=== PATIENT | female | born 1980 | race Caucasian/White ===

== ENCOUNTER 2018-10-10 07:52 | Emergency (ER) | payer BC, SELFPAY ==
[2018-10-10 07:55] VITALS: BP 140/84; PULSE 80; RESP 12; TEMP 36.8; O2SAT 97
--- NOTE | 2018-10-10 07:56 | W.ED.GENAD ---
Discharge Plan Disposition Patient Disposition: HOME Condition: Fair Discharge Details Chief Complaint: Sorethroat Clinical Impression: Strep pharyngitis Primary Care Provider: Paulina Aranda ED Provider: Adilene Patterson Home Meds and New Rx's Prescriptions: New amoxicillin 500 mg capsule 500 mg PO BID Qty: 20 RF: 0 lidocaine HCl [Lidocaine Viscous] 2 % solution 15 ml MM BID-QID PRN (Reason: mouth pain) Qty: 100 RF: 0 Discharge Instructions Instructions: Upper Respiratory Infection (ED) Additional Instructions: Encourage hydration. Tylenol and/or ibuprofen as needed for discomfort. Use the viscous lidocaine as prescribed to help with discomfort. Please take this only as prescribed. Take amoxicillin as prescribed, even if symptoms improve please take the entire course. If you develop increased swelling, shortness of breath, inability stay hydrated or other new/worsening symptoms please seek care urgently once again. Otherwise, symptoms are not resolved next week please follow-up with primary care Wash your hands frequently, change toothbrushes as discussed Stand Alone Forms: Work Release Referrals: Paulina Aranda [Primary Care Provider] - Medical Decision Making Patient is a 38-year-old female presents today with chief complaint of sore throat that began yesterday. Patient reports that she started feeling slightly unwell the night before the sore throat began maximizing yesterday. States that she is able to continue to hydrate but has discomfort doing so. Diminished appetite secondary to pain. Denies fevers or chills. Had one episode of nausea this morning which is since resolved. Patient reports her child has had strep on multiple occasions. On exam, she appears nontoxic. Vital signs within normal limits. Posterior oropharynx is concerning for bilateral tonsillar hypertrophy, erythema with exudate. No trismus, muffled voice or swelling of the tongue. Palpable lymphadenopathy. Primarily concern for Streptococcus pharyngitis. Rapid strep positive. Discussed this finding with the patient. Patient be treated with antibiotics. Encourage hydration. Given the swelling in her discomfort, will give 1 dose of oral dexamethasone. Will give viscous lidocaine to allow for better hydration. Patient did use ibuprofen earlier this morning, will augment this with Tylenol. She is given strict return precautions. Advised to follow-up with primary care if not improving in the next week. All the questions and concerns were addressed and she is in agreement with this plan. Will change her toothbrush, aware it is contagious and will take precautions. HPI General Mode of arrival: ambulatory. Date/Time Provider Initiated Documentation: 10/10/18 07:56. Limitations to Documentation: no limitations. Information obtained by: patient and RN notes reviewed. History of Present Illness 38 year old F presents to the emergency department with the chief complaint of sore throat, described as moderate, with intensity rated at 8. Quality is described as burning, and is localized to the mouth. Patient reports no radiation. Patient started experiencing this day(s) (1) and it has been constant. No relieving factors improve symptom(s), Eating worsens symptoms . Patient notes loss of appetite (secondary to throat pain) and nausea/vomiting (endorses 1 episode of nausea this AM, since resolved); denies chest pain, cough, diaphoresis, fever/chills, headaches, rash, shortness of breath, syncope and weakness. Patient did receive the following treatments prior to arrival, NSAID Related Data Home Medications Medication Instructions Recorded Confirmed amoxicillin 500 mg PO BID #20 cap 10/10/18 lidocaine HCl [Lidocaine Viscous] 15 ml MM BID-QID PRN #100 ml 10/10/18 Previous Rx's Medication Instructions Recorded amoxicillin 500 mg PO BID #20 cap 10/10/18 lidocaine HCl [Lidocaine Viscous] 15 ml MM BID-QID PRN #100 ml 10/10/18 Allergies Allergy/AdvReac Type Severity Reaction Status Date / Time No Known Drug Allergies Allergy Unverified 10/10/18 07:57 General Stated Complaint: Sorethroat STARLA: 4 Review of Systems Constitutional Reports as per HPI, Denies chills, Reports fatigue, Denies fever(s), Denies headache(s), Denies lethargy and Reports poor appetite Eyes Reports as per HPI, Denies eye discharge and Denies irritation ENT Reports as per HPI, Denies ear discharge, Reports otalgia (bilateral), Denies headache(s), Denies nasal congestion, Denies nasal discharge, Reports neck pain (endoses pain along lymphnodes), Reports sore throat and Denies tongue swelling Cardiovascular Reports as per HPI, Denies chest pain and Denies dyspnea Respiratory Reports as per HPI, Reports cough (mild,nonproductive cough), Denies hemoptysis, Denies dyspnea and Denies wheezing Gastrointestinal Reports as per HPI, Denies abdominal pain, Denies change in bowel habits, Denies nausea and Denies vomiting Musculoskeletal Reports neck pain (endoses pain along lymphnodes) Integumentary/Breasts Reports as per HPI and Denies rash Neurologic Reports as per HPI and Denies headache(s) Endocrine Reports fatigue Allergic/Immunologic Denies tongue swelling and Denies wheezing [facility] Social History Smoking/Tobacco Use Status: Former Tobacco Use Drug use: Never Do you feel safe at home: Yes Do you feel safe in your relationship?: Yes Exam Const General: cooperative, healthy appearing, comfortable, no acute distress, well developed and well groomed Nutritional Appearance: average body habitus and well nourished Orientation: alert and awake HENNJ Head: normal to inspection, normocephalic and atraumatic Ears: hearing grossly normal bilaterally, external ears normal and TM's normal bilaterally General nose exam: external nose normal and nares normal Face and sinus: normal facial exam, sinuses nontender and face symmetric Mouth: oral mucosae normal, lip normal, tongue normal, oropharynx normal, moist mucous membranes, no muffled voice, no trismus and No restricted motion Teeth and gingiva: dentition normal Throat: uvula midline and abnormal tonsil bilaterally erythema, exudates and hypertrophy 2+ Eyes General: appearance normal, both eyes and all related structures Neck Neck: normal visual inspection, full ROM, no meningeal signs and lymphadenopathy Resp Effort & Inspection: normal respiratory effort, able to speak in complete sentences and no respiratory distress Auscultation: clear to auscultation bilaterally, no rales, no rhonchi and no wheezes Cardio Rate: regular rate Rhythm: regular rhythm Heart Sounds: S1 normal and S2 normal Skin General skin exam: no rashes or lesions noted Neuro General: alert and awake Cognition: normal cognition Speech: speech normal Gait: normal gait Psych Appearance: grossly normal and well kempt Mental Status: mental status grossly normal Speech and Movement: speech and movement normal Course Vital Signs Temperature 36.8 C 10/10/18 07:55 Pulse 80 10/10/18 07:55 Respiratory Rate 12 10/10/18 07:55 Blood Pressure 140/84 10/10/18 07:55 Pulse Oximetry 97 10/10/18 07:55 Temperature 36.8 C 10/10/18 07:55 Temperature Source Temporal Artery Scan 10/10/18 07:55 Pulse 80 05/30/19 07:55 Respiratory Rate 12 10/10/18 07:55 Blood Pressure 140/84 10/10/18 07:55 Blood Pressure Position Sitting 10/10/18 07:55 Pulse Oximetry 97 10/10/18 07:55 Oxygen Delivery Method Room Air 10/10/18 07:55 Oxygen Flow Rate 0 10/10/18 07:55 Pain Level 8 10/10/18 07:55
[2018-10-10] MEDS: Lidocaine 2% Viscous 15 ML CUP PO (08:13)
[2018-10-10] MEDS: Dexamethasone 10 MG/ML VIAL PO (08:13)
[2018-10-10] MEDS: Acetaminophen 325 MG TAB 650 MG PO (08:13)
--- NOTE | 2018-10-10 08:16 | ED.GENADUL_ITS ---
Discharge Plan Disposition Patient Disposition: HOME Condition: Fair Discharge Details Chief Complaint: Sorethroat Clinical Impression: Strep pharyngitis Primary Care Provider: Paulina Aranda ED Provider: Adilene Patterson Home Meds and New Rx's Prescriptions: New amoxicillin 500 mg capsule 500 mg PO BID Qty: 20 RF: 0 lidocaine HCl [Lidocaine Viscous] 2 % solution 15 ml MM BID-QID PRN (Reason: mouth pain) Qty: 100 RF: 0 Discharge Instructions Instructions: Upper Respiratory Infection (ED) Additional Instructions: Encourage hydration. Tylenol and/or ibuprofen as needed for discomfort. Use the viscous lidocaine as prescribed to help with discomfort. Please take this only as prescribed. Take amoxicillin as prescribed, even if symptoms improve please take the entire course. If you develop increased swelling, shortness of breath, inability stay hydrated or other new/worsening symptoms please seek care urgently once again. Otherwise, symptoms are not resolved next week please follow-up with primary care Wash your hands frequently, change toothbrushes as discussed Stand Alone Forms: Work Release Referrals: Paulina Aranda [Primary Care Provider] - Medical Decision Making Patient is a 38-year-old female presents today with chief complaint of sore throat that began yesterday. Patient reports that she started feeling slightly unwell the night before the sore throat began maximizing yesterday. States that she is able to continue to hydrate but has discomfort doing so. Diminished appetite secondary to pain. Denies fevers or chills. Had one episode of nausea this morning which is since resolved. Patient reports her child has had strep on multiple occasions. On exam, she appears nontoxic. Vital signs within normal limits. Posterior oropharynx is concerning for bilateral tonsillar hypertrophy, erythema with exudate. No trismus, muffled voice or swelling of the tongue. Palpable lymphadenopathy. Primarily concern for Streptococcus pharyngitis. Rapid strep positive. Discussed this finding with the patient. Patient be treated with antibiotics. Encourage hydration. Given the swelling in her discomfort, will give 1 dose of oral dexamethasone. Will give viscous lidocaine to allow for better hydration. Patient did use ibuprofen earlier this morning, will augment this with Tylenol. She is given strict return precautions. Advised to follow-up with primary care if not improving in the next week. All the questions and concerns were addressed and she is in agreement with this plan. Will change her toothbrush, aware it is contagious and will take precautions. HPI General Mode of arrival: ambulatory . Date/Time Provider Initiated Documentation: 10/10/18 07:56 . Limitations to Documentation: no limitations . Information obtained by: patient and RN notes reviewed . History of Present Illness 38 year old F presents to the emergency department with the chief complaint of sore throat, described as moderate, with intensity rated at 8. Quality is described as burning, and is localized to the mouth. Patient reports no radiation. Patient started experiencing this day(s) (1) and it has been constant. No relieving factors improve symptom(s), Eating worsens symptoms . Patient notes loss of appetite (secondary to throat pain) and nausea/vomiting (endorses 1 episode of nausea this AM, since resolved); denies chest pain, cough, diaphoresis, fever/chills, headaches, rash, shortness of breath, syncope and weakness. Patient did receive the following treatments prior to arrival, NSAID Related Data Home Medications Medication Instructions Recorded Confirmed amoxicillin 500 mg PO BID #20 cap 10/10/18 lidocaine HCl [Lidocaine Viscous] 15 ml MM BID-QID PRN #100 ml 10/10/18 Previous Rx's Medication Instructions Recorded amoxicillin 500 mg PO BID #20 cap 10/10/18 lidocaine HCl [Lidocaine Viscous] 15 ml MM BID-QID PRN #100 ml 10/10/18 Allergies Allergy/AdvReac Type Severity Reaction Status Date / Time No Known Drug Allergies Allergy Unverified 10/10/18 07:57 General Stated Complaint: Sorethroat STARLA: 4 Review of Systems Constitutional Reports as per HPI, Denies chills, Reports fatigue, Denies fever(s), Denies headache(s), Denies lethargy and Reports poor appetite Eyes Reports as per HPI, Denies eye discharge and Denies irritation ENT Reports as per HPI, Denies ear discharge, Reports otalgia (bilateral), Denies headache(s), Denies nasal congestion, Denies nasal discharge, Reports neck pain (endoses pain along lymphnodes), Reports sore throat and Denies tongue swelling Cardiovascular Reports as per HPI, Denies chest pain and Denies dyspnea Respiratory Reports as per HPI, Reports cough (mild,nonproductive cough), Denies hemoptysis, Denies dyspnea and Denies wheezing Gastrointestinal Reports as per HPI, Denies abdominal pain, Denies change in bowel habits, Denies nausea and Denies vomiting Musculoskeletal Reports neck pain (endoses pain along lymphnodes) Integumentary/Breasts Reports as per HPI and Denies rash Neurologic Reports as per HPI and Denies headache(s) Endocrine Reports fatigue Allergic/Immunologic Denies tongue swelling and Denies wheezing [facility] Social History Smoking/Tobacco Use Status: Former Tobacco Use Drug use: Never Do you feel safe at home: Yes Do you feel safe in your relationship?: Yes Exam Const General: cooperative, healthy appearing, comfortable, no acute distress, well developed and well groomed Nutritional Appearance: average body habitus and well nourished Orientation: alert and awake HENWI Head: normal to inspection, normocephalic and atraumatic Ears: hearing grossly normal bilaterally, external ears normal and TM's normal bilaterally General nose exam: external nose normal and nares normal Face and sinus: normal facial exam, sinuses nontender and face symmetric Mouth: oral mucosae normal, lip normal, tongue normal, oropharynx normal, moist mucous membranes, no muffled voice, no trismus and No restricted motion Teeth and gingiva: dentition normal Throat: uvula midline and abnormal tonsil bilaterally erythema, exudates and hypertrophy 2+ Eyes General: appearance normal, both eyes and all related structures Neck Neck: normal visual inspection, full ROM, no meningeal signs and lymphadenopathy Resp Effort & Inspection: normal respiratory effort, able to speak in complete sentences and no respiratory distress Auscultation: clear to auscultation bilaterally, no rales, no rhonchi and no wheezes Cardio Rate: regular rate Rhythm: regular rhythm Heart Sounds: S1 normal and S2 normal Skin General skin exam: no rashes or lesions noted Neuro General: alert and awake Cognition: normal cognition Speech: speech normal Gait: normal gait Psych Appearance: grossly normal and well kempt Mental Status: mental status grossly normal Speech and Movement: speech and movement normal Course Vital Signs Temperature 36.8 C 10/10/18 07:55 Pulse 80 10/10/18 07:55 Respiratory Rate 12 10/10/18 07:55 Blood Pressure 140/84 10/10/18 07:55 Pulse Oximetry 97 10/10/18 07:55 Temperature 36.8 C 10/10/18 07:55 Temperature Source Temporal Artery Scan 10/10/18 07:55 Pulse 80 05/30/19 07:55 Respiratory Rate 12 10/10/18 07:55 Blood Pressure 140/84 10/10/18 07:55 Blood Pressure Position Sitting 10/10/18 07:55 Pulse Oximetry 97 10/10/18 07:55 Oxygen Delivery Method Room Air 10/10/18 07:55 Oxygen Flow Rate 0 10/10/18 07:55 Pain Level 8 10/10/18 07:55
== END 2018-10-10 08:22 | disposition home or self-care (01) ==
PROVIDERS: Emergency Provider Physician Assistant; PCP Family Medicine
DX: J02.0 Streptococcal pharyngitis (principal)
CPT/HCPCS: 87880; 99283; J1100

== ENCOUNTER 2020-05-27 03:23 | Outpatient (CLI) | payer OTHER, SELFPAY ==
[2020-05-27 07:20] LABS: Abs Immature Grans 0.05 10^3/uL (0.0-0.06); Absolute Basophil Count 0.03 10^3/uL (0.0-0.2); Absolute Eosinophil Count 0.24 10^3/uL (0.0-0.7); Absolute Lymphocyte Count 2.33 10^3/uL (1.2-3.4); Absolute Monocyte Count 0.43 10^3/uL (0.1-0.8); Absolute Neutrophil Count 6.79 10^3/uL (1.2-6.7); Basophils % 0.3; Eosinophils % 2.4; HCT 39.2 % (36.0-46.0); HGB 12.9 g/dL (11.2-15.7); Immature Grans % 0.5; Lymphocytes % 23.6; MCH 31.6 pg (27.0-33.0); MCHC 32.9 % (32.0-36.0); MCV 96.1 fL (80-95); MPV 11.6 fL (8.0-11.0); Monocytes % 4.4; Neutrophils % 68.8; Nucleated RBC 0 %; Platelet Count 206 10^3/uL (130-400); RBC 4.08 10^6/uL (3.93-5.22); RDW 12.3 % (11.7-14.6); RDW-SD 43.2 fL; WBC 9.87 10^3/uL (4.4-10.8)
[2020-05-27 08:42] LABS: Iron 63 ug/dL (50-170); Total Iron Binding Capacity 296 ug/dL (250-450)
[2020-05-27 08:53] LABS: ALT 62 U/L (14-59); AST 35 U/L (15-37); Albumin 3.9 g/dL (3.4-5.0); Alkaline Phosphatase 78 U/L (46-116); Anion Gap 9.2 mmol/L (3-11); BUN 9 mg/dL (7-18); Bilirubin, Total 0.3 mg/dL (0.2-1.0); CO2 27.8 mmol/L (21.0-32.0); CREATININE 1.23 mg/dL (0.55-1.02); Calcium 8.6 mg/dL (8.5-10.1); Chloride 103 mmol/L (98-107); Estimated GFR 47.88 (mL/min/1.73m2); Ferritin 118 ng/mL (8-252); Glucose 115 mg/dL (74-106); Magnesium 2.3 mg/dL (1.8-2.4); Potassium 4.5 mmol/L (3.5-5.1); Sodium 140 mmol/L (136-145); TSH (W/Ref FT4) 3.34 uIU/mL (0.36-3.74); Total Protein 7.3 g/dL (6.4-8.2)
== END 2020-05-27 03:43 ==
PROVIDERS: PCP Student in an Organized Health Care Education/Training Program; Visit Provider Student in an Organized Health Care Education/Training Program
DX: R59.1 Generalized enlarged lymph nodes; R53.83 Other fatigue; F39 Unspecified mood [affective] disorder; E16.2 Hypoglycemia, unspecified; R20.2 Paresthesia of skin; G25.81 Restless legs syndrome; E86.0 Dehydration; G89.29 Other chronic pain
CPT/HCPCS: 36415; 80053; 82728; 83540; 83550; 83735; 84443; 85025

== ENCOUNTER 2020-07-19 04:17 | Outpatient (CLI) | payer OTHER, SELFPAY ==
[2020-07-19 12:23] LABS: Anion Gap 8.7 mmol/L (3-11); BUN 10 mg/dL (7-18); CO2 26.3 mmol/L (21.0-32.0); CREATININE 1.1 mg/dL (0.55-1.02); Calcium 8.9 mg/dL (8.5-10.1); Chloride 106 mmol/L (98-107); Estimated GFR 54.47 (mL/min/1.73m2); Glucose 77 mg/dL (74-106); Potassium 4.5 mmol/L (3.5-5.1); Sodium 141 mmol/L (136-145)
== END 2020-07-19 04:18 | disposition home or self-care (01) ==
LOC: LBO 04:18
PROVIDERS: PCP Student in an Organized Health Care Education/Training Program; Visit Provider Student in an Organized Health Care Education/Training Program
DX: E16.2 Hypoglycemia, unspecified (principal); R79.89 Other specified abnormal findings of blood chemistry
CPT/HCPCS: 36415; 80048

== ENCOUNTER 2020-07-20 02:03 | Outpatient (CLI) | payer OTHER, SELFPAY ==
--- NOTE | 2020-07-20 07:30 | DI.MAMMO_ITS ---
EXAM: MG MAMMO DIAGNOSTIC BI CLINICAL HISTORY: RT BREAST PAIN, N64.4 TECHNIQUE: Bilateral full field digital CC and MLO mammographic images were obtained with 3D tomosyn thesis and utilizing computer aided detection (CAD). COMPARISON: None. This is a baseline examination. FINDINGS: Masses/Architectural Distortion: None seen. Microcalcifications: No suspicious pleomorphic-type are seen. Skin Thickening/Nipple Retraction: None. IMPRESSION: 1. No significant interval change with no specific features of malignancy noted. 2. Unless there is more urgent need, screening mammography is recommended, as per [employer] [place] [employer] guidelines. 3. Findings were discussed with the patient on the date of the examination. BI-RADS Category 1 - Negative Breast Density - Category B - Scattered areas of fibroglandular density Breast density category C or D implies that the patient has dense breast tissue. Dense breast tissue is very common and is not abnormal but dense breast tissue can make it harder to find cancer on a ma mmogram. Also, dense breast tissue may increase their breast cancer risk. This information about the result of the mammogram report was provided to the patient to raise their awareness. Use this report when you speak with the patient about their risks for breast cancer, which includes their family hist ory. At that time, you may recommend for more screening tests (Ultrasound or MRI) as they might be us eful based on their risk. A negative radiographic report should not delay biopsy if a dominant or clinically suspicious mass is present. Up to ten percent of cancers are not identified on mammography. A negative report may reinforce clinical impression. Adenosis and dense breasts may obscure an underlying neoplasm. False positive reports average 6 to 10%. Patient will receive a letter notifying them of these results.
== END 2020-07-20 02:23 ==
PROVIDERS: PCP Student in an Organized Health Care Education/Training Program; Visit Provider Student in an Organized Health Care Education/Training Program
DX: N64.4 Mastodynia (principal)
CPT/HCPCS: 77062; 77066; G0279

== ENCOUNTER 2020-07-29 11:27 | Outpatient (REF) | payer OTHER, SELFPAY ==
[2020-07-29 13:19] LABS: HCT 37.2 % (36.0-46.0); HGB 12.6 g/dL (11.2-15.7); MCH 31.8 pg (27.0-33.0); MCHC 33.9 % (32.0-36.0); MCV 93.9 fL (80-95); MPV 12.3 fL (8.0-11.0); Platelet Count 212 10^3/uL (130-400); RBC 3.96 10^6/uL (3.93-5.22); RDW 12.5 % (11.7-14.6); RDW-SD 43.2 fL; WBC 7.36 10^3/uL (4.4-10.8)
[2020-07-29 13:57] LABS: Ferritin 87 ng/mL (8-252); TSH (W/Ref FT4) 2.99 uIU/mL (0.36-3.74)
[2020-07-29 14:13] LABS: Iron 64 ug/dL (50-170)
== END 2020-07-29 11:28 | disposition home or self-care (01) ==
LOC: LBN 11:27
PROVIDERS: PCP Student in an Organized Health Care Education/Training Program; Visit Provider Student in an Organized Health Care Education/Training Program
DX: E03.9 Hypothyroidism, unspecified (principal); Z86.2 Personal history of diseases of the blood and blood-forming organs and certain disorders involving the immune mechanism; Z51.81 Encounter for therapeutic drug level monitoring
CPT/HCPCS: 85027; 82728; 83540; 84443

== ENCOUNTER 2021-01-24 04:11 | Outpatient (CLI) | payer OTHER, SELFPAY ==
[2021-01-24 09:33] LABS: Anion Gap 9.9 mmol/L (3-11); BUN 14 mg/dL (7-18); CO2 27.1 mmol/L (21.0-32.0); CREATININE 1.3 mg/dL (0.55-1.02); Calcium 8.7 mg/dL (8.5-10.1); Calculated LDL 146 mg/dL (<100); Chloride 105 mmol/L (98-107); Cholesterol 207 mg/dL (<200); Estimated GFR 44.92 (mL/min/1.73m2); Glucose 98 mg/dL (74-106); HDL Cholesterol 35 mg/dL (40-60); Potassium 4.3 mmol/L (3.5-5.1); Sodium 142 mmol/L (136-145); TSH (W/Ref FT4) 3.17 uIU/mL (0.36-3.74); Triglyceride 130 mg/dL (<150)
== END 2021-01-24 04:12 | disposition home or self-care (01) ==
LOC: LBO 04:11
PROVIDERS: PCP Student in an Organized Health Care Education/Training Program; Visit Provider Student in an Organized Health Care Education/Training Program
DX: R53.83 Other fatigue; R79.89 Other specified abnormal findings of blood chemistry; Z13.220 Encounter for screening for lipoid disorders
CPT/HCPCS: 36415; 80048; 80061; 84443

== ENCOUNTER 2021-03-16 03:19 | Outpatient (CLI) | payer BC, SELFPAY ==
[2021-03-16 08:15] LABS: Bilirubin Negative (Negative); Blood Negative (Negative); Clarity Clear (Clear); Glucose Negative (Negative); Ketones Negative (Negative); Leukocyte Esterase Negative (Negative); Nitrite Negative (Negative); Specific Gravity >= 1.030 (1.005-1.025); Urobilinogen 0.2 EU/dL (Up TO 0.2)
[2021-03-16 08:26] LABS: Epithelial Cells Few HPF (Negative); RBC Negative HPF (0-2); WBC Negative HPF (0-5)
[2021-03-16 08:27] LABS: Bacteria Few HPF (Negative); C & S Indicated? No; Casts Negative LPF (Negative); Crystals Negative HPF (Negative); Mucus Trace (Negative); Other Cells Negative (Negative)
[2021-03-16 08:27] LABS: Abs Immature Grans 0.02 10^3/uL (0.0-0.06); Absolute Basophil Count 0.03 10^3/uL (0.0-0.2); Absolute Eosinophil Count 0.22 10^3/uL (0.0-0.7); Absolute Lymphocyte Count 2.04 10^3/uL (1.2-3.4); Absolute Monocyte Count 0.45 10^3/uL (0.1-0.8); Absolute Neutrophil Count 4.79 10^3/uL (1.2-6.7); Basophils % 0.4; Eosinophils % 2.9; HCT 36.3 % (36.0-46.0); Immature Grans % 0.3; MCH 31.8 pg (27.0-33.0); MCHC 33.1 % (32.0-36.0); MCV 96.3 fL (80-95); MPV 11.6 fL (8.0-11.0); Neutrophils % 63.4; Nucleated RBC 0 %; Platelet Count 221 10^3/uL (130-400); RBC 3.77 10^6/uL (3.93-5.22); RDW 12.7 % (11.7-14.6); WBC 7.55 10^3/uL (4.4-10.8)
[2021-03-16 08:32] LABS: PROTEIN 16.5 mg/dL
[2021-03-16 08:42] LABS: Prot/Crea Ur Ratio 0.04
[2021-03-16 09:23] LABS: ALT 37 U/L (14-59); AST 29 U/L (15-37); Albumin 3.8 g/dL (3.4-5.0); Alkaline Phosphatase 93 U/L (46-116); Anion Gap 9.8 mmol/L (3-11); BUN 9 mg/dL (7-18); Bilirubin, Total 0.3 mg/dL (0.2-1.0); CO2 27.2 mmol/L (21.0-32.0); CREATININE 1.2 mg/dL (0.55-1.02); Calcium 8.9 mg/dL (8.5-10.1); Chloride 105 mmol/L (98-107); Estimated GFR 49.27 (mL/min/1.73m2); Ferritin 144 ng/mL (8-252); Glucose 96 mg/dL (74-106); Potassium 4.5 mmol/L (3.5-5.1); Sodium 142 mmol/L (136-145); Total Protein 7.2 g/dL (6.4-8.2)
[2021-03-16 09:50] LABS: Iron 84 ug/dL (50-170); Total Iron Binding Capacity 297 ug/dL (250-450); Transferrin Sat 28 % (15-50)
== END 2021-03-16 03:20 | disposition home or self-care (01) ==
LOC: LBO 03:24
PROVIDERS: PCP Student in an Organized Health Care Education/Training Program; Visit Provider Student in an Organized Health Care Education/Training Program
DX: R53.83 Other fatigue (principal); N17.9 Acute kidney failure, unspecified; R42 Dizziness and giddiness; Z86.2 Personal history of diseases of the blood and blood-forming organs and certain disorders involving the immune mechanism
CPT/HCPCS: 36415; 80053; 81003; 81015; 82565; 82728; 83540; 83550; 84156; 85025

== ENCOUNTER 2021-03-25 07:09 | Outpatient (CLI) | payer BC, SELFPAY ==
--- NOTE | 2021-04-12 12:47 | W.CARDEVENT ---
Date of service: 04/12/21 Time of Service: 12:48 Cardiac Event Recorder Referring Provider:: Shanda Gonzalez Indications:: Tachycardia Cardiac Event Note: This was a 14-day event monitor, ordered for symptoms of tachycardia dizziness and giddiness Rhythm throughout was sinus. Average heart rate was 67. Minimum was 41, maximum 178 There were very rare ventricular ectopic beats There were occasional atrial premature beats There was no atrial fibrillation, no high-grade AV block, no pauses greater than 3 seconds Patient symptoms of lightheadedness during exercise corresponded to sinus tachycardia at 169. Patient symptoms of shortness of breath corresponded to sinus rhythm at 79 bpm
== END 2021-03-25 07:10 | disposition home or self-care (01) ==
LOC: RT 07:10
PROVIDERS: PCP Student in an Organized Health Care Education/Training Program; Visit Provider Student in an Organized Health Care Education/Training Program
DX: R42 Dizziness and giddiness (principal); R00.0 Tachycardia, unspecified
CPT/HCPCS: 93246

== ENCOUNTER 2021-06-14 02:13 | Outpatient (CLI) | payer BC, SELFPAY ==
[2021-06-14 09:07] LABS: Iron 77 ug/dL (50-170)
[2021-06-14 09:28] LABS: Anion Gap 10.8 mmol/L (3-11); BUN 18 mg/dL (7-18); CO2 24.2 mmol/L (21.0-32.0); CREATININE 1.1 mg/dL (0.55-1.02); Calcium 8.8 mg/dL (8.5-10.1); Chloride 103 mmol/L (98-107); Estimated GFR 54.21 (mL/min/1.73m2); Glucose 117 mg/dL (74-106); Potassium 4.2 mmol/L (3.5-5.1); Sodium 138 mmol/L (136-145); TSH (W/Ref FT4) 2.29 uIU/mL (0.36-3.74)
[2021-06-16 11:50] LABS: Metanephrine, Free <0.20 nmol/L (<0.50); Normetanephrine, Free 0.38 nmol/L (<0.90)
[2021-06-21 00:26] LABS: AM Cortisol 4.2 mcg/dL (5-25); Cortisol, Free 0.244 mcg/dL
== END 2021-06-14 02:14 | disposition home or self-care (01) ==
LOC: LBO 02:14
PROVIDERS: PCP Student in an Organized Health Care Education/Training Program; Visit Provider Internal Medicine
DX: E03.9 Hypothyroidism, unspecified (principal); R53.83 Other fatigue; N17.9 Acute kidney failure, unspecified; R23.2 Flushing; R61 Generalized hyperhidrosis; R42 Dizziness and giddiness; R09.89 Other specified symptoms and signs involving the circulatory and respiratory systems; Z86.2 Personal history of diseases of the blood and blood-forming organs and certain disorders involving the immune mechanism
CPT/HCPCS: 36415; 80048; 82530; 82533; 83540; 83835; 84443

== ENCOUNTER 2022-02-24 02:12 | Outpatient (CLI) | payer BC, SELFPAY ==
[2022-02-24 09:18] LABS: Anion Gap 10.3 mmol/L (3-11); BUN 10 mg/dL (7-18); CO2 24.7 mmol/L (21.0-32.0); CREATININE 1.3 mg/dL (0.55-1.02); Calcium 8.6 mg/dL (8.5-10.1); Chloride 104 mmol/L (98-107); Estimated GFR 52.33 (mL/min/1.73m2); Glucose 156 mg/dL (74-106); Potassium 4.4 mmol/L (3.5-5.1); Sodium 139 mmol/L (136-145); TSH (W/Ref FT4) 3.02 uIU/mL (0.36-3.74); Vitamin B12 330 pg/mL (193-986)
== END 2022-02-24 02:13 | disposition home or self-care (01) ==
LOC: LBO 02:12
PROVIDERS: PCP Student in an Organized Health Care Education/Training Program; Visit Provider Student in an Organized Health Care Education/Training Program
DX: N17.9 Acute kidney failure, unspecified (principal); R79.89 Other specified abnormal findings of blood chemistry; E03.9 Hypothyroidism, unspecified; R71.8 Other abnormality of red blood cells
CPT/HCPCS: 36415; 80048; 82607; 84443

== ENCOUNTER 2022-04-28 01:08 | Outpatient (CLI) | payer BC, SELFPAY ==
[2022-04-28 08:35] LABS: HCT 36.9 % (36.0-46.0); HGB 12.3 g/dL (11.2-15.7); MCH 32.1 pg (27.0-33.0); MCHC 33.3 % (32.0-36.0); MCV 96 fL (80-95); MPV 11.7 fL (8.0-11.0); Platelet Count 205 10^3/uL (130-400); RBC 3.83 10^6/uL (3.93-5.22); RDW 12.7 % (11.7-14.6); RDW-SD 44.3 fL; WBC 7.58 10^3/uL (4.4-10.8)
[2022-04-28 08:49] LABS: Hemoglobin A1C 5.8 % (<5.7)
[2022-04-28 09:13] LABS: Anion Gap 6.6 mmol/L (3-11); BUN 9 mg/dL (7-18); CO2 28.4 mmol/L (21.0-32.0); CREATININE 1.2 mg/dL (0.55-1.02); Calcium 9.1 mg/dL (8.5-10.1); Chloride 104 mmol/L (98-107); Estimated GFR 57.24 (mL/min/1.73m2); Ferritin 141 ng/mL (8-252); Glucose 124 mg/dL (74-106); Potassium 3.8 mmol/L (3.5-5.1); Sodium 139 mmol/L (136-145)
[2022-04-28 09:34] LABS: Iron 91 ug/dL (50-170); Total Iron Binding Capacity 340 ug/dL (250-450); Transferrin Sat 27 % (15-50)
== END 2022-04-28 01:09 | disposition home or self-care (01) ==
LOC: LBO 01:09
PROVIDERS: PCP Student in an Organized Health Care Education/Training Program; Visit Provider Student in an Organized Health Care Education/Training Program
DX: E03.9 Hypothyroidism, unspecified (principal); R79.89 Other specified abnormal findings of blood chemistry; R73.09 Other abnormal glucose
CPT/HCPCS: 36415; 80048; 85027; 82728; 83036; 83540; 83550

== ENCOUNTER 2022-06-27 10:15 | Emergency (ER) | payer BC, SELFPAY ==
[2022-06-27 10:21] VITALS: BP 161/85; PULSE 62; RESP 18; TEMP 36.8; O2SAT 99
--- NOTE | 2022-06-27 10:30 | DI.RAD_ITS ---
Exam(s) XR FOOT RT COMPLETE EXAM: XR FOOT RT COMPLETE CLINICAL HISTORY: Trauma. TECHNIQUE: 2D digital imaging was performed. COMPARISON: No exams were available for comparison FINDINGS: 3 views No evidence of acute fracture or diastasis of the Lisfranc joint. Small calcific density off the med ial aspect of the great toe metatarsophalangeal joint is noted. This is doubtful for an acute fractu re fragment. Sesamoid bone noted on the medial aspect of the foot at the navicular tuberosity level. Tiny inferior calcaneal spur noted. No calcification evident in the plantar fascia. IMPRESSION: Findings as above but no acute fracture evident. DATA REPOSITORY: RADIATION DOSE DELIVERED:
[2022-06-27 12:08] LABS: Bilirubin Negative (Negative); Blood Negative (Negative); Clarity Clear (Clear); Glucose Negative (Negative); Ketones Negative (Negative); Leukocyte Esterase Negative (Negative); Nitrite Negative (Negative); Specific Gravity 1.025 (1.005-1.025); Urobilinogen 0.2 EU/dL (Up TO 0.2); pH 6.5 (5-8)
--- NOTE | 2022-06-27 13:20 | ED.GENADUL_ITS ---
Discharge Plan Disposition Patient Disposition: Home Condition: Stable Discharge Details Clinical Impression: Crushing injury of great toe, right Primary Care Provider: Shanda Gonzalez ED Provider: Krishna Deluca Home Meds and New Rx's Prescriptions: Continued cyanocobalamin (vitamin B-12) 1,000 mcg capsule 1,000 mcg PO DAILY lisinopril 5 mg tablet 5 mg PO BID PRN (Reason: high blood pressure) Qty: 60 1RF Hold Instructions: Home Medication placed on hold at Doctor's office Rx Instructions: Trial, slow increase. HOLD if BP < 130/84 hydrochlorothiazide 12.5 mg tablet 12.5 mg PO DAILY PRN (Reason: high blood pressure and swelling) Qty: 30 0RF Hold Instructions: Home Medication placed on hold at Doctor's office Rx Instructions: As per direction only magnesium oxide 400 mg magnesium tablet 400 mg PO DAILY metformin 500 mg tablet extended release 24 hr 500 mg PO DAILY Qty: 60 0RF lisinopril 2.5 mg tablet 2.5 mg PO BID Qty: 180 3RF Rx Instructions: Continue low dose metformin 500 mg tablet 500 mg PO BID Qty: 60 1RF Rx Instructions: Trial, start with half tab x2 days then 1 tablet daily x1 week Discharge Instructions Additional Instructions: X-ray did not reveal any obvious definitive fracture. Wear jovani taping and use short walking boot as needed, advance activity as tolerated. [id number] Tylenol and/or Motrin as directed for discomfort. Rest, elevate, cool compresses every 2 hours for 20 minutes. Please watch for new or worsening symptoms and return to the ER for any concerns. If symptoms persist I do recommend following up with your primary care provider in a week, outpatient repeat x-rays may be indicated. Medical Decision Making 42-year-old female accidentally dropped a pot lid onto her great toe this mo rning. Primary concern for fracture. Will obtain x-ray and reassess. X-ray does not reveal any obvious definitive fracture. We did discuss the small calcific density off the medial aspect of the great toe. Patient remains neuro, vascular, intact. We did discuss that if there was a small avulsion fracture the overall disposition would not be changed. Will jovani tape the great and second toe as well is placed into a short walking boot. Patient already has crutches at home. Standard discharge and return precautions were provided. Patient understands, is agreeable to this plan, and has no additional questions or concerns upon discharge. This documentation was generated using [employer] dictation system, please disregard any oddities of phrase or misspellings. Medical Records Medical records reviewed: Yes I reviewed the patient's medical records. Imaging Data Radiologic Study: Attestation: I personally reviewed and interpreted this imaging study as follows: Imaging: X-Ray Radiologist's impression: Exam(s) XR FOOT RT COMPLETE EXAM: XR FOOT RT COMPLETE CLINICAL HISTORY: Trauma. TECHNIQUE: 2D digital imaging was performed. COMPARISON: No exams were available for comparison FINDINGS: 3 views No evidence of acute fracture or diastasis of the Lisfranc joint. Small calcific density off the medial aspect of the great toe metatarsophalangeal joint is noted. This is doubtful for an acute fracture fragment. Sesamoid bone noted on the medial aspect of the foot at the navicular tuberosity level. Tiny inferior calcaneal spur noted. No calcification evident in the plantar fascia. IMPRESSION: Findings as above but no acute fracture evident. HPI General Mode of arrival: ambulatory . Date/Time Provider Initiated Documentation: 06/27/22 13:18 . Limitations to Documentation: no limitations . Information obtained by: patient . History of Present Illness 42 year old F presents to the emergency department with the chief complaint of R great toe injury, described as moderate, with intensity rated at 6. Quality is described as aching, and is localized to the right and lower extremity. Patient reports no radiation. Patient started experiencing this hour(s) (3.5) and it has been constant. Immobilization improves symptom(s), Movement worsens symptoms . Patient notes no other symptoms.. Patient did receive the following treatments prior to arrival, none Related Data Home Medications Medication Instructions Recorded Confirmed hydrochlorothiazide 12.5 mg tablet 12.5 mg PO DAILY PRN high blood 01/27/21 05/19/22 pressure and swelling #30 tabs lisinopril 5 mg tablet 5 mg PO BID PRN high blood 01/27/21 05/19/22 pressure #60 tabs lisinopril 2.5 mg tablet 2.5 mg PO BID #180 tabs 04/20/21 05/19/22 magnesium oxide 400 mg PO DAILY 08/23/21 06/27/22 cyanocobalamin (vitamin B-12) 1,000 mcg PO DAILY 04/14/22 06/27/22 1,000 mcg capsule metformin 500 mg tablet 500 mg PO BID #60 tabs 04/29/22 06/02/22 metformin 500 mg tablet,extended 500 mg PO DAILY #60 tabs 06/02/22 06/27/22 release 24 hr Previous Rx's Medication Instructions Recorded hydrochlorothiazide 12.5 mg tablet 12.5 mg PO DAILY PRN high blood 01/27/21 pressure and swelling #30 tabs lisinopril 5 mg tablet 5 mg PO BID PRN high blood 01/27/21 pressure #60 tabs lisinopril 2.5 mg tablet 2.5 mg PO BID #180 tabs 04/20/21 metformin 500 mg tablet 500 mg PO BID #60 tabs 04/29/22 metformin 500 mg tablet,extended 500 mg PO DAILY #60 tabs 06/02/22 release 24 hr Allergies Allergy/AdvReac Type Severity Reaction Status Date / Time No Known Drug Allergies Allergy Verified 06/27/22 10:24 General Stated Complaint: Orthopedic STARLA: 4 Review of Systems Constitutional Constitutional: Denies weakness Musculoskeletal Musculoskeletal: Reports arthralgias, Reports joint swelling, Denies numbness, Reports stiffness and Denies tingling Integumentary/Breasts Skin/Breast: Denies rash Neurologic Neurologic: Denies numbness, Denies tingling and Denies weakness PFSH All Active Problems Crushing injury of great toe, right (Acute) Elevated hemoglobin A1c (Acute) 5.8 in April 2022, not a complete surprise but worry some and starting metformin. Poor tolerance metformin/trial ER, 06/02-. Prediabetes (Acute) A1C 5.8, 04/2022 (with Hx hypoglycemia) BRIELLE (acute kidney injury) (Acute) Risk/Stage 1 injury .. Cr: 0.86 (06/2019) --> 1.3 (01/2021). CKD (chronic kidney disease) stage 3, GFR 30-59 ml/min (Chronic) with BRIELLE noted, 01/2021, but w/o etiology .. GFR 52, 57 (2021). Creatinine elevation (Acute ~07/2021) 07/21/21 [facility] [place] Nephrology w f/u 2-3months Elevated blood pressure reading in office without diagnosis of hypertension (Acute) Family hx of hypertension (Acute) Abnormal flushing and sweating (Acute) Episodes of sweating, shaking .. BG 81.. Labile blood pressure (Acute) 04/13/21 [facility] [place] Cardiology note Hepatic hemangioma (Chronic) 3.5cm per 02/2021 Renal US, with Hx vague low-density finding on 2015 CT. No acute action 2' < 5cm. [ ] US or CT in 02/2022. Hypothyroid (Chronic) 25 --> 50mcg, 01/2021 Dizziness (Acute) Recent dizziness, nausea, chest tightness @ gym .. No syncope, no fall. Monitoring food and repeat symptoms; DDx hypoglycemia. Hx of iron deficiency anemia (Acute) Fatigue (Acute) Other chronic pain (Acute) Unspecified mood [affective] disorder (Acute) Medical History Acute and chronic cholecystitis Hx of viral illness Hypoglycemia, unspecified #1 Low BG or Panic Episode? #2 BG 46 Lymphadenopathy Mass in neck Level III, excised 10/07/20 Lipoma Paresthesia of skin Presence of (intrauterine) contraceptive device Surgical History History of ankle surgery (~2003) 12/2003 Dr Carlson History of (02/07/11) 02/07/11 [facility] Dr Fitzpatrick History of cholecystectomy (01/19/12) 01/2012 [facility] Dr Nur S/P excision of lipoma (~09/2020) right neck Family History Mother Anxiety Hypertension Aunt Anxiety Tongue cancer Throat cancer Maternal Grandmother Hypertension Diabetes Maternal Grandfather Prostate cancer Other Stomach cancer Social History Smoking/Tobacco Use Status: Former Tobacco Use Quit Date: 05/14/07 Tobacco: How many years used: 10 Smoking risk assessment performed?: Yes Alcohol Intake: current Alcohol Intake frequency: a few times a month Alcohol type: beer, wine and other Drug use: Never Adopted: No Caregiver/Support person: No Foster care: No Household members: family Housing: house Do you need help understanding health information?: Never 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, [employer] Sexually active: Yes Do you think of yourself as: straight/heterosexual Current gender identity: female Do you feel safe at home: Yes Do you feel safe in your relationship?: Yes Exam Const General: cooperative, healthy appearing, comfortable and no acute distress Orientation: alert and awake HENNC Head: normal to inspection, normocephalic and atraumatic Eyes Conjunctivae: conjunctivae normal Neck Neck: normal visual inspection, trachea midline and supple Resp Effort & Inspection: normal respiratory effort and able to speak in complete sentences Cardio Rate: regular rate Rhythm: regular rhythm Skin General skin exam: no rashes or lesions noted Neuro General: patient alert, patient awake, moves all extremities and no focal motor deficits Cognition: normal cognition Speech: speech normal Gait: antalgic Motor: muscle tone normal throughout Sensory Exam: no sensory deficits noted Extrem General: full ROM and capillary refill normal Ankle/foot/toe images: 1. Swelling, tenderness, no ecchymosis or deformity. No subungual hematoma. Neuro, vascular, tendon intact. Skin intact. Normal capillary refill and pedal pulse. Psych Appearance: grossly normal Mental Status: mental status grossly normal Course Vital Signs Vital signs: Vital Signs Temperature 36.8 C 06/27/22 10:21 Pulse 62 06/27/22 10:21 Respiratory Rate 18 06/27/22 10:21 Blood Pressure 161/85 H 06/27/22 10:21 Pulse Oximetry 99 06/27/22 10:21 Temperature 36.8 C 06/27/22 10:21 Temperature Source Skin 06/27/22 10:21 Pulse 62 06/27/22 10:21 Respiratory Rate 18 06/27/22 10:21 Respiratory Effort Normal 06/27/22 10:35 Blood Pressure 161/85 H 06/27/22 10:21 Blood Pressure Position Sitting 06/27/22 10:21 Pulse Oximetry 99 06/27/22 10:21 Pain Level 10 06/27/22 10:36 Lab/Test Results Lab/Test Results: Laboratory Tests Range/Units 06/27/22 12:00 Urine Color (Yellow) Yellow Urine Clarity (Clear) Clear Urine pH (5-8) 6.5 Ur Specific Alloy (1.005-1.025) 1.025 Urine Protein (Negative) mg/dL Negative Urine Ketones (Negative) mg/dL Negative Urine Blood (Negative) Negative Urine Nitrite (Negative) Negative Urine Bilirubin (Negative) Negative Urine Urobilinogen (Up TO 0.2) EU/dL 0.2 Ur Leukocyte Esterase (Negative) Negative Urine Glucose (Negative) mg/dL Negative POC- Test(urine) Negative PAWSS Have you Been Recently Intoxicated or Drunk Within the Last 30 days?: No Have you Ever Experienced Previous Episodes of Alcohol Withdrawal?: No Have you ever Experienced Withdrawal Seizures?: No Have you ever Experienced Delirium Tremens(DT)s?: No Have you ever undergone Alcohol Rehabilitation Treatment (i.e, inpt ot outpatient treatment programs)?: No Have you ever Experienced Blackouts?: No Have you ever Combined Alcohol with other Downers within the last 90 days?: No Have you ever Combined Alcohol with any other Substance of Abuse during the last 90 days?: No Positive Blood Alcohol level on Presentation? [PCS.BAL]: No Evidence of Increased Autonomic Activity (i.e. HR>120, tremor, sweating, agitation, nausea)?: No Result: 0
== END 2022-06-27 13:42 | disposition home or self-care (01) ==
PROVIDERS: Emergency Provider Physician Assistant; PCP Student in an Organized Health Care Education/Training Program
DX: S97.111A Crushing injury of right great toe, initial encounter (principal); W20.8XXA Other cause of strike by thrown, projected or falling object, initial encounter
CPT/HCPCS: 81025; 99283; 73630; 81003; 99282

== ENCOUNTER 2022-07-25 12:08 | Outpatient (CLI) | payer BC, SELFPAY ==
--- NOTE | 2022-07-25 11:30 | DI.RAD_ITS ---
Exam(s) XR HAND LT COMPLETE EXAM: XR HAND LT COMPLETE CLINICAL HISTORY: evaluate joint space for erosion, jt pain, M25.50. TECHNIQUE: 2D digital imaging was performed. Three views. COMPARISON: No exams were available for comparison FINDINGS: BONES: Bones are normally mineralized. No acute fracture is present. No bony destructive lesion is s een. JOINTS: No dislocation present. No joint space erosions. No significant degenerative changes. SOFT TISSUE: Normal. IMPRESSION: Unremarkable radiographs of the left hand. DATA REPOSITORY: RADIATION DOSE DELIVERED:
--- NOTE | 2022-07-25 11:30 | DI.RAD_ITS ---
Exam(s) XR HAND RT COMPLETE EXAM: XR HAND RT COMPLETE CLINICAL HISTORY: evaluate joint space for erosion, jt pain, M25.50. TECHNIQUE: 2D digital imaging was performed. Three views. COMPARISON: CR XR HAND LT COMPLETE from 07/25/2022 FINDINGS: BONES: Bones are normally mineralized. No acute fracture is present. No bony destructive lesion is s een. JOINTS: No dislocation present. No significant degenerative changes. No joint space erosions. SOFT TISSUE: Normal. IMPRESSION: Unremarkable radiographs of the right hand. DATA REPOSITORY: RADIATION DOSE DELIVERED:
== END 2022-07-25 12:28 ==
LOC: DI 12:08
PROVIDERS: PCP Student in an Organized Health Care Education/Training Program; Visit Provider Student in an Organized Health Care Education/Training Program
DX: M25.541 Pain in joints of right hand (principal); M25.542 Pain in joints of left hand
CPT/HCPCS: 73130

== ENCOUNTER 2022-09-29 02:26 | Outpatient (CLI) | payer BC, SELFPAY ==
[2022-09-29 11:48] LABS: HCT 37.7 % (36.0-46.0); HGB 12.7 g/dL (11.2-15.7); MCH 32.2 pg (27.0-33.0); MCHC 33.7 % (32.0-36.0); MCV 95 fL (80-95); MPV 11.6 fL (8.0-11.0); Platelet Count 231 10^3/uL (130-400); RBC 3.95 10^6/uL (3.93-5.22); RDW 12.8 % (11.7-14.6); RDW-SD 44.9 fL; WBC 9.13 10^3/uL (4.4-10.8)
[2022-09-29 12:40] LABS: Anion Gap 10.2 mmol/L (3-11); BUN 7 mg/dL (7-18); CO2 27.8 mmol/L (21.0-32.0); CREATININE 1.1 mg/dL (0.55-1.02); Chloride 104 mmol/L (98-107); Estimated GFR 63.54 (mL/min/1.73m2); Glucose 72 mg/dL (74-106); Magnesium 2.1 mg/dL (1.8-2.4); Potassium 3.7 mmol/L (3.5-5.1); Sodium 142 mmol/L (136-145); TSH (W/Ref FT4) 2.91 uIU/mL (0.36-3.74)
[2022-09-29 12:56] LABS: Vitamin D 25 Total 29.6 ng/mL (30-100)
== END 2022-09-29 02:27 | disposition home or self-care (01) ==
PROVIDERS: PCP Student in an Organized Health Care Education/Training Program; Visit Provider Student in an Organized Health Care Education/Training Program
DX: E03.9 Hypothyroidism, unspecified (principal); D75.89 Other specified diseases of blood and blood-forming organs; R73.03 Prediabetes; R79.89 Other specified abnormal findings of blood chemistry; N17.9 Acute kidney failure, unspecified; E55.9 Vitamin D deficiency, unspecified; N18.30 Chronic kidney disease, stage 3 unspecified; E87.8 Other disorders of electrolyte and fluid balance, not elsewhere classified; R23.2 Flushing
CPT/HCPCS: 36415; 80048; 82306; 85027; 83735; 84443

== ENCOUNTER 2023-05-24 03:28 | Outpatient (CLI) | payer BC, SELFPAY ==
[2023-05-24 11:45] LABS: Vitamin D 25 Total 29.7 ng/mL (30-100)
[2023-05-24 11:47] LABS: Anion Gap 10.1 mmol/L (3-11); BUN 12 mg/dL (7-18); CO2 24.9 mmol/L (21.0-32.0); CREATININE 1.4 mg/dL (0.55-1.02); Calculated LDL 142 mg/dL (<100); Chloride 103 mmol/L (98-107); Cholesterol 206 mg/dL (<200); Estimated GFR 47.28 (mL/min/1.73m2); Ferritin 138 ng/mL (8-252); Folate 5.3 ng/mL (8.6-20.0); Glucose 110 mg/dL (74-106); HDL Cholesterol 38 mg/dL (40-60); Potassium 3.6 mmol/L (3.5-5.1); Sodium 138 mmol/L (136-145); TSH (W/Ref FT4) 3.77 uIU/mL (0.36-3.74); Triglyceride 132 mg/dL (<150); Vitamin B12 369 pg/mL (193-986)
[2023-05-24 12:03] LABS: FREE T4 0.98 ng/dL (0.76-1.46)
== END 2023-05-24 03:29 | disposition home or self-care (01) ==
LOC: LBO 03:28
PROVIDERS: PCP Student in an Organized Health Care Education/Training Program; Visit Provider Student in an Organized Health Care Education/Training Program
DX: R03.0 Elevated blood-pressure reading, without diagnosis of hypertension (principal); R09.89 Other specified symptoms and signs involving the circulatory and respiratory systems; R53.83 Other fatigue; Z13.220 Encounter for screening for lipoid disorders; K90.9 Intestinal malabsorption, unspecified; N18.30 Chronic kidney disease, stage 3 unspecified; E03.9 Hypothyroidism, unspecified; R79.89 Other specified abnormal findings of blood chemistry; E55.9 Vitamin D deficiency, unspecified; F39 Unspecified mood [affective] disorder; R45.86 Emotional lability
CPT/HCPCS: 36415; 80048; 80061; 82306; 82607; 82728; 82746; 84439; 84443

== ENCOUNTER 2023-07-24 04:27 | Outpatient (CLI) | payer BC, SELFPAY ==
[2023-07-24 10:27] LABS: Bilirubin Negative (Negative); Blood Negative (Negative); Clarity Clear (Clear); Glucose Negative (Negative); Ketones Negative (Negative); Leukocyte Esterase Negative (Negative); Nitrite Negative (Negative); Specific Gravity 1.015 (1.005-1.025); Urobilinogen 0.2 mg/dL (Up to 0.2)
[2023-07-24 10:35] LABS: Bacteria Negative HPF (Negative); C & S Indicated? No; Casts Negative LPF (Negative); Crystals Negative HPF (Negative); Epithelial Cells Few HPF (Negative); Mucus Negative (Negative); RBC 0-2 HPF (0-2); WBC 0-2 HPF (0-5)
[2023-07-24 11:00] LABS: COMMENT (LAB VIEW ONLY) 21.43 mg/dL; PROTEIN < 6.0 mg/dL
[2023-07-24 11:02] LABS: COMMENT (LAB VIEW ONLY) 21.97 mg/dL; Microalb ug/mg Crea 15.5 ug/mg Cr
[2023-07-24 11:11] LABS: Anion Gap 9.1 mmol/L (3-11); BUN 9 mg/dL (7-18); CO2 27.9 mmol/L (21.0-32.0); CREATININE 1.3 mg/dL (0.55-1.02); Calcium 9.3 mg/dL (8.5-10.1); Chloride 103 mmol/L (98-107); Estimated GFR 51.68 (mL/min/1.73m2); Glucose 103 mg/dL (74-106); Potassium 4.1 mmol/L (3.5-5.1); Sodium 140 mmol/L (136-145)
[2023-07-24 11:39] LABS: Vitamin D 25 Total 52.4 ng/mL (30-100)
[2023-07-25 18:13] LABS: Cystatin C, S 0.92 mg/L; eGFR by Cystatin C 86 mL/min/BSA (>60)
== END 2023-07-24 04:28 | disposition home or self-care (01) ==
PROVIDERS: PCP Student in an Organized Health Care Education/Training Program; Visit Provider Student in an Organized Health Care Education/Training Program
DX: N18.30 Chronic kidney disease, stage 3 unspecified (principal); N17.9 Acute kidney failure, unspecified; R79.89 Other specified abnormal findings of blood chemistry; R39.89 Other symptoms and signs involving the genitourinary system; Z91.89 Other specified personal risk factors, not elsewhere classified
CPT/HCPCS: 36415; 80048; 82043; 82306; 82570; 82610; 81003; 81015; 82565; 84156

== ENCOUNTER → 2023-08-30 03:36 | Outpatient (CLI) | payer BC, SELFPAY ==
--- NOTE | 2023-08-30 08:42 | DI.MAMMO_ITS ---
Exam(s) MAMMO SCREENING EXAM: MAMMO SCREENING CLINICAL HISTORY: screening,z12.39 TECHNIQUE: Bilateral full field digital CC and MLO mammographic images were obtained with 3D tomosyn thesis and utilizing computer aided detection (CAD). COMPARISON: Available for comparison. FINDINGS: Masses/Architectural Distortion: There is stable asymmetric breast tissue in the central posterior ri ght breast on the MLO view. No new nodules or areas of architectural distortion are seen. Microcalcifications: No suspicious pleomorphic-type are seen. Skin Thickening/Nipple Retraction: None. IMPRESSION: 1. No significant interval change with no specific features of malignancy noted. 2. Unless there is more urgent need, screening mammography is recommended, as per [employer] guidelines. BI-RADS Category 1 - Negative Breast Density - Category B - Scattered areas of fibroglandular density Breast density category C or D implies that the patient has dense breast tissue. Dense breast tissue is very common and is not abnormal but dense breast tissue can make it harder to find cancer on a ma mmogram. Also, dense breast tissue may increase their breast cancer risk. This information about the result of the mammogram report was provided to the patient to raise their awareness. Use this report when you speak with the patient about their risks for breast cancer, which includes their family hist ory. At that time, you may recommend for more screening tests (Ultrasound or MRI) as they might be us eful based on their risk. A negative radiographic report should not delay biopsy if a dominant or clinically suspicious mass is present. Up to ten percent of cancers are not identified on mammography. A negative report may reinforce clinical impression. Adenosis and dense breasts may obscure an underlying neoplasm. False positive reports average 6 to 10%. Patient will receive a letter notifying them of these results.
== END ==
PROVIDERS: PCP Student in an Organized Health Care Education/Training Program; Visit Provider Student in an Organized Health Care Education/Training Program
DX: Z12.31 Encounter for screening mammogram for malignant neoplasm of breast (principal)
CPT/HCPCS: 77063; 77067

== ENCOUNTER 2023-11-06 09:14 | Day surgery (SDC) | payer BC, SELFPAY ==
[2023-11-06 09:40] VITALS: BP 139/87; PULSE 58; RESP 16; TEMP 36.6; O2SAT 99
[2023-11-06] MEDS: Lactated Ringers 1,000 ML 80 ML IV (09:44)
[2023-11-06 10:40] VITALS: BMI 32.1
--- NOTE | 2023-11-06 10:40 | ANES.PREOP_ITS ---
General Info Date of Service Date Performed: 11/06/23 Height: 5 ft 9 in Weight: 98.6 kg Body Mass Index (BMI): 32.1 Surgical Procedure: Operation Date: 11/06/23 09:50 Proposed Procedure Side Surgeon gwyn Dunbar, Meds Allergies and Home Medications Allergies Allergy/AdvReac Type Severity Reaction Status Date / Time No Known Drug Allergies Allergy none Verified 11/06/23 09:39 Home Medication Medication Instructions Recorded diclofenac sodium 1 % topical gel 4 g topical QID #100 grams 07/25/22 (Voltaren Arthritis Pain) vitamin w/ Folate gummy 1 cap PO DAILY 07/10/23 cholecalciferol (vitamin D3) 125 125 mcg PO DAILY #90 caps 08/12/23 mcg (5,000 unit) capsule cyanocobalamin (vitamin B-12) 1,000 mcg PO DAILY #90 caps 08/12/23 1,000 mcg capsule metformin 500 mg tablet,extended See Rx Instructions .Route 08/14/23 release 24 hr .COMPLEX #90 tabs bupropion HCl 150 mg tablet,12 hr 150 mg PO QAM #90 tabs 10/09/23 sustained-release citalopram 20 mg tablet 20 mg PO QHS #90 tabs 10/09/23 Current Visit Medications: Current Medications Generic Name Dose Route Start Last Admin Trade Name Freq PRN Reason Stop Dose Admin Ringer's Solution 1,000 mls @ 80 mls/hr 11/06/23 06:00 11/06/23 09:44 IV 11/06/23 23:59 80 mls/hr INFUSION RG Administration IV Miscellaneous Supplies 1 each 11/06/23 06:00 Iv Access IV 11/06/23 23:59 DIRECTED RG Sodium Chloride 0 ml 11/06/23 06:00 Normal Saline Flush 10 Ml Syr IV 11/06/23 23:59 PRN PRN Sodium Chloride 0 ml 11/06/23 06:00 Normal Saline 10 Ml Vial IJ 11/06/23 23:59 DIRECTED PRN Sterile Water 0 ml 11/06/23 06:00 Water,Injection,Sterile 10 Ml Vial IJ 11/06/23 23:59 DIRECTED PRN PFSH Active Problems Active Problems: Problem Status Onset Code Adjustment disorder F43.20 Low folic acid E53.8 Autonomic dysfunction G90.9 Low vitamin D level R79.89 Hemorrhoid K64.9 Mood altered R45.86 Joint pain M25.50 Elevated hemoglobin A1c R73.09 Prediabetes R73.03 BRIELLE (acute kidney injury) N17.9 CKD (chronic kidney disease) stage 3, GFR 30-59 ml/min N18.30 Creatinine elevation ~07/2021 R79.89 Elevated blood pressure reading in office without diagnosis of hypertension R03.0 Family hx of hypertension Z82.49 Abnormal flushing and sweating R23.2, R61 Labile blood pressure R09.89 Hepatic hemangioma D18.03 Hypothyroid E03.9 Dizziness R42 Hx of iron deficiency anemia Z86.2 Fatigue R53.83 Other chronic pain G89.29 Unspecified mood [affective] disorder F39 Medical History Medical History Mass in neck Level III, excised 10/07/20 Lipoma Hx of viral illness Hypoglycemia, unspecified Symptomatic BG 70 per 08/17/23 discussion. ik.. (son has had serious lows) #1 Low BG or Panic Episode? #2 BG 46 Presence of (intrauterine) contraceptive device Lymphadenopathy Paresthesia of skin Acute and chronic cholecystitis 10+ yrs ago (Jun 2023, ik) Surgical History Surgical History S/P excision of lipoma (~09/2020) right neck History of cholecystectomy (01/19/12) 01/[address] [facility] [address] Nur History of (02/07/11) 02/07/[address] [facility] [address] Fitzpatrick History of ankle surgery (~2003) 12/2003 Dr Carlson Tobacco Smoking/Tobacco Use Status: Former Tobacco Use Passive smoking exposure: No Alcohol Alcohol Intake: current Alcohol intake frequency: a few times a month Alcohol type: beer, wine and other Substance Use Substance use: Never Substance use type: does not use Vital Signs and Lab Results Vital Signs Most Recent Vital Signs in EMR: Most Recent Vital Signs Temp Pulse Resp BP Pulse Ox 36.6 C 58 L 16 139/87 99 11/06/23 09:40 11/06/23 09:40 11/06/23 09:40 11/06/23 09:40 11/06/23 09:40 Point of Care Results Point of Care Results: POC- Test(urine) Negative 11/06/23 10:17 Finger Stick Blood Glucose 93 11/06/23 09:31 Lab Results Blood Type / Crossmatch: No Data to Display Complete Blood Count: No Data to Display Complete Metabolic Panel: No Data to Display Liver Function Panel: No Data to Display Coagulation Panel: No Data to Display Cardiac Panel: No Data to Display Arterial Blood Gas: No Data to Display Venous Blood Gas: No Data to Display Pancreas Panel: No Data to Display Thyroid Panel: No Data to Display Infectious Disease: No Data to Display Blood Cultures: No Data to Display Toxicology Panel: No Data to Display Panel: No Data to Display Anesthesia Assessment and Plan Anesthesia History Personal History: No History of Anesthesia Complications Family History: No Family History of Anesthesia Complications Exercise Tolerance Exercise Tolerance: Metabolic Equivalents>4 Pertinent Negatives Pertinent Negatives: No Symptoms of GERD Cardiac & Pulmonary Exam Cardiac Exam: Normal S1/S2 Heart Sounds Pulmonary Exam: Clear Bilateral Breath Sounds Implantable Cardiac Device Does patient have a Pacemaker or an ICD?: No Airway Exam Known Difficult Airway: No Mallampati Class: 2 Mouth Opening: Normal (> 3cm) Thyromental Distance: Greater than 3 cm Neck Range of Motion: Full ROM Neck Circumference: Normal Teeth Condition: Normal Dentition ASA Classification ASA Score: ASA 2 Emergency Case?: No NPO Status NPO Status: NPO Clears >2 hours, Solids >8 hours Status Status: Negative HCG Anesthesia Plan Resuscitation Status: Full Code Anesthesia Technique: General Anesthesia Airway Planned: Natural Airway Monitors Used: Standard Monitors
--- NOTE | 2023-11-06 11:07 | BOWEL_PTH ---
PATIENT: Riana Riggins LOC: [facility] U#:[id number] AGE/SX: 43/F ROOM: RE11/06/[address]: Fela Dunbar : 1980 BED: DIS: 11/06/2023 SPEC #: [id number] RECD: 11/06/23 12:53 STATUS: GRANT REQ #: [id number] DAVIS: 11/06/23 11:[address]: Fela Dunbar DEPT: Surgical Specimen RECD BY: Ebony Galindo ENTERED: 11/06/23 12:54 SP TYPE: Bowel OTHR DR: Shanda Gonzalez DO Tissues: 1 - BIOPSY BOWEL Procedures: GROSS AND MICRO LEVEL 4 Comments: [id number]
[2023-11-06 11:12] VITALS: BP 111/71; PULSE 56; RESP 16; TEMP 36.5; O2SAT 96
[2023-11-06 11:43] VITALS: BP 114/72; PULSE 52; RESP 16; TEMP 35.9; O2SAT 100
--- NOTE | 2023-11-06 11:49 | PDOC.DSDIS_ITS ---
Date of service: 11/06/23 Time of Service: 11:49 Discharge Plan Disposition Patient Disposition: Home Condition: Good Discharge Details Reason For Visit: colon scope Attending Provider: Fela Dunbar Primary Care Provider: Shanda Gonzalez Home Meds and New Rx's Prescriptions: Continued citalopram 20 mg tablet 20 mg PO QHS Qty: 90 1RF Rx Instructions: Trial @ bedtime, start with 1/2 tab x 4 days, then (1) qHS bupropion HCl 150 mg tablet sustained-release 12 hr 150 mg PO QAM Qty: 90 1RF Rx Instructions: Trial more extended dosing diclofenac sodium [Voltaren Arthritis Pain] 1 % gel 4 g topical QID Qty: 100 1RF Rx Instructions: apply to both hands for DIP, PIP joint pain, swelling vitamin w/ Folate gummy 1 cap PO DAILY cyanocobalamin (vitamin B-12) 1,000 mcg capsule 1,000 mcg PO DAILY Qty: 90 3RF cholecalciferol (vitamin D3) 125 mcg (5,000 unit) capsule 125 mcg PO DAILY Qty: 90 3RF Rx Instructions: as best dispensed per insurance SUBSTITUTE per insurance metformin 500 mg tablet extended release 24 hr See Rx Instructions .ROUTE .COMPLEX Qty: 90 0RF Dose Instruction: TAKE 1 TABLET BY MOUTH DAILY Rx Instructions: TAKE 1 TABLET BY MOUTH DAILY Discharge Instructions Additional Instructions: [facility] Colonoscopy Post- Op Instructions Instructions for Everyone who is given Anesthesia: For your safety, please do the following for the next twenty-four (24) hours: *Do Not operate a motor vehicle (car, truck, motorcycle, etc.) *Do Not drink alcoholic beverages or use any recreational drugs for the first 24 hours or while taking pain medications. The medications in your body may have a reaction that can be dangerous. *Do Not make any important decisions or sign any important papers. Findings: X 1 small polyp. My office will send you a letter in 3 to 4 weeks time with the results of the pathology and when we want you to repeat the colonoscopy. Most likely in 7 to 10 years time. 1. No lifting over 20 pounds or strenuous activity for the first 24 hours after your procedure. After 24 hours there are no restrictions on your activity but you may feel fatigued for a few days. 2. After you arrive home you may have a light meal and return to your normal diet as you can tolerate it without feeling sick to your stomach. 3. You may have a bloated, gaseous feeling in your belly (abdomen) after a colonoscopy. Passing gas and belching will help. Walking or lying down on your l eft side with your knees flexed may relieve the discomfort. Call the office at [phone] (Office) or [phone] (Hospital) right away if you notice any of the following: a.Vomiting of blood or ?coffee ground stools?. b.Rectal bleeding 1Tbsp, blood clots or continuous bleeding. c.Severe belly (abdominal) pain. d.A hard distended belly (abdomen) and an inability to pass gas. 4. Please don?t expect to have a normal BM (bowel movement) for 2-3 days after your procedure. 5. If there are questions regarding the findings of your procedure, please contact your doctor 6. If you are unable to contact your doctor with a problem, contact the hospital at [phone]. 7. Continue all your regular medications unless directed otherwise. I understand the above instructions and have no questions. Signature of Patient or Adult Escort Name of Responsible Adult Escort Signature of Nurse Date/Time Stand Alone Forms: Anesthesia Discharge Inst., Robert Olivares (DSU) Activity:: See above Diet:: See above Discharge Orders Discharge Orders: Discharge Order (Routine); Ordered 11/06/23 Ordered By: Fela Dunbar DS: Diagnosis Discharge Diagnosis (1) Colon polyp: Status: Acute Asessment and Plan: The patient is seen and examined after their colonoscopy.? The patient has been able to pass gas.? They are not having abdominal pain.? They have been able to tolerate liquids and a snack.? They do not have any nausea or vomiting.? They are not having any chest pain or shortness of breath.??? They are not having any rectal bleeding. Their vital signs have been stable-see nursing notes. We discussed findings during their colonoscopy, and any biopsies that were done/polyps that were removed. The patient will be sent a letter with any biopsy results, and when to repeat the colonoscopy.-see discharge instructions. Patient was given explicit instructions to follow-up regarding colonoscopy-refer to discharge instructions.? We reviewed resumption of medications. Patient verbalized understanding and discharged in stable and satisfactory condition- See nursing notes.
--- NOTE | 2023-11-06 11:50 | W.ANESPOSTOP ---
Postoperative Evaluation Date, Time and Location Date Performed: 11/06/23 Time Performed: 11:12 Patient Location: Day Surgery Unit Vital Signs Most Recent Imported Vital Signs: Most Recent Vital Signs Temp Pulse Resp BP Pulse Ox 36.5 C 56 L 16 111/71 96 11/06/23 11:12 11/06/23 11:12 11/06/23 11:12 11/06/23 11:12 11/06/23 11:12 Pain Score Most Recent Pain Score: Most Recent Pain Score Pain Level 0 11/06/23 11:12 Assessment Mental Status: Awake (Alert & Oriented to Patient Baseline) Airway and Respiratory Function: Patent airway with normal (patient baseline) respiratory exam Cardiovascular Function: Hemodynamically Stable Hydration Status: Adequately Hydrated Nausea & Vomiting: No Nausea or Vomiting Pain: Pt. Denies Any Pain Peripheral Nerve Block: Patient did not receive a nerve block
--- NOTE | 2023-11-06 17:37 | W.COLOREPORT ---
Date of service: 11/06/23 Time of Service: 11:30 Colonoscopy Report Date of procedure: 11/06/23 Pre-op diagnosis general: Colorectal cancer screening Post-op diagnosis procedure note: other (Polyps) Surgeon: Fela Dunbar Anesthesia Type: General:No Airway Estimated blood loss (mL): 1 Pathology: other Complications: None Disposition: same day Prep: Miralax/Dulcolax Retraction Time: 9 Procedure Description: After informed consent was obtained the patient was taken to the procedure room and placed in a left decubitous position. Monitors were applied and a time out was done. The patients name, date of , procedure, allergies to medications and metal in their body was reviewed. The patient was then sedated. Once sedated and comfortable a rectal exam was done. External exam -minimal external hemorrhoids internal exam revealed a normal sphincter tone and no palpable masses. The scope was then introduced and retrofelexed. No internal hemorrhoids were identified. The scope was then advanced to the cecum without difficulty. The TI and appendiceal orifice were identified. The scope was then slowly retracted over minutes back into the rectum. She had 2 flat 5 mm polyps at 30 cm that are both removed with a cold biting forcep. All specimen is retrieved and no bleeding is noted. There are no AVMs or diverticula visualized today. The mucosa is pink and healthy with a normal vascular pattern. The scope was removed and the patient was woken up and taken back to Same day surgery in stable condition. The patient tolerated the procedure well and there were no immediate complications. Follow up: The patient should follow up in 7 to 10 years path pending unless they develop changes in bowel habits or other new gastrointestinal complaints. [place] Bowel Prep [place] Bowel Prep Right Colon: 3 Left Colon: 3 Transverse Colon: 3 Total Score: 9
== END 2023-11-06 12:07 | disposition home or self-care (01) ==
PROVIDERS: PCP Student in an Organized Health Care Education/Training Program; Visit Provider Surgery
PROC: 0DJD8ZZ Inspection of Lower Intestinal Tract, Via Natural or Artificial Opening Endoscopic (ICD-10-PCS; CPT 45378; principal; 2023-11-06 09:45)
DX: K63.5 Polyp of colon (principal); Z12.11 Encounter for screening for malignant neoplasm of colon
CPT/HCPCS: 45380; 81025; 88305; J2704

== ENCOUNTER 2023-12-06 02:24 | Outpatient (CLI) | payer BC, SELFPAY ==
[2023-12-06 08:44] LABS: HGB 13.1 g/dL (11.2-15.7)
[2023-12-06 09:43] LABS: Microalb ug/mg Crea 5.2 ug/mg Cr
[2023-12-06 09:50] LABS: Anion Gap 9.3 mmol/L (3-11); BUN 8 mg/dL (7-18); CO2 25.7 mmol/L (21.0-32.0); CREATININE 1.3 mg/dL (0.55-1.02); Calcium 9.2 mg/dL (8.5-10.1); Chloride 105 mmol/L (98-107); Estimated GFR 51.68 (mL/min/1.73m2); Glucose 97 mg/dL (74-106); Sodium 140 mmol/L (136-145)
[2023-12-06 10:13] LABS: Folate 8.1 ng/mL (8.6-20.0); TSH (W/Ref FT4) 2.49 uIU/mL (0.36-3.74)
== END 2023-12-06 02:25 | disposition home or self-care (01) ==
LOC: LBO 02:24
PROVIDERS: Absent Provider Student in an Organized Health Care Education/Training Program; PCP Student in an Organized Health Care Education/Training Program; Referring Provider Student in an Organized Health Care Education/Training Program; Visit Provider Student in an Organized Health Care Education/Training Program
DX: E03.9 Hypothyroidism, unspecified; R79.89 Other specified abnormal findings of blood chemistry; N18.30 Chronic kidney disease, stage 3 unspecified; E53.8 Deficiency of other specified B group vitamins; K90.9 Intestinal malabsorption, unspecified; Z86.2 Personal history of diseases of the blood and blood-forming organs and certain disorders involving the immune mechanism; I10 Essential (primary) hypertension
CPT/HCPCS: 36415; 80048; 82306; 82043; 82570; 82746; 84443; 85018

== ENCOUNTER 2024-03-21 16:14 | Outpatient (CLI) | payer BC, SELFPAY ==
--- NOTE | 2024-03-21 16:00 | DI.RAD_ITS ---
Exam(s) XR FOOT LT COMPLETE EXAM: XR FOOT LT COMPLETE CLINICAL HISTORY: M79.672,M84.30XA; r/o stress Fx; eval bony path. TECHNIQUE: 2D digital imaging was performed. Three views. COMPARISON: CR XR FOOT RT COMPLETE from 06/27/2022 FINDINGS: BONES: No acute fracture is present. No bony destructive lesion is seen. Fixation plate noted over lateral malleolus. JOINTS: No dislocation present. Minimal degenerative changes at the 1st tarsal metatarsal joint. SOFT TISSUE: Normal. IMPRESSION: No evidence of stress fracture or other acute abnormality. DATA REPOSITORY: RADIATION DOSE DELIVERED:
--- NOTE | 2024-03-21 16:43 | DI.VRAD_ITS ---
PROCEDURE INFORMATION: Exam: XR Left Foot Exam date and time: 03/21/2024 4:13 PM Age: 43 years old Clinical indication: Other: Lt foot pain, stress FX, sunpecified site, initial TECHNIQUE: Imaging protocol: Radiologic exam of the left foot. Views: 3 or more views. COMPARISON: No relevant prior studies available. FINDINGS: Bones/joints: No acute fracture or dislocation identified. There is mild degenerative change of the 1st metatarsophalangeal joint consisting of joint space narrowing. The metatarsal bones and phalanges are intact. The midfoot and hindfoot show normal alignment. There is a tiny plantar calcaneal spur. There has been prior open reduction and internal fixation of a lateral malleolar fracture. An orthopedic plate is present. It is intact. Soft tissues: No abnormal soft tissue gas or foreign bodies. IMPRESSION: 1. No acute fracture or dislocation. 2. Mild degenerative change of the 1st metatarsophalangeal joint. 3. Prior fixation of a lateral malleolar fracture with intact orthopedic hardware. Dictated and Authenticated by: Nishant Her MD. Ordering:FAHEEM Land MD
== END 2024-03-21 16:34 ==
PROVIDERS: PCP Student in an Organized Health Care Education/Training Program; Visit Provider Student in an Organized Health Care Education/Training Program
DX: M79.672 Pain in left foot (principal)
CPT/HCPCS: 73630

== ENCOUNTER 2024-05-19 03:01 | Outpatient (CLI) | payer BC, SELFPAY ==
--- NOTE | 2024-05-19 06:45 | DI.US_ITS ---
Exam(s) US RENAL EXAM: US RENAL CLINICAL HISTORY: flank pain, ? hematuria, CKD,ELEVATED CREATININE,R10.9,R79.89. TECHNIQUE: Hector scale, color and spectral Doppler were used. COMPARISON: US US ABDOMEN from 02/14/2022 FINDINGS: Renal size in cm: Right: 10.4. Left: 9.9. Echogenicity: Normal. Hydronephrosis: No. Cyst or mass: No. Nephrolithiasis: No. Other findings: None. Bladder:The bladder is incompletely distended. No gross abnormalities identified. Ureteral jets: Right: Visualized and unremarkable. Left: Visualized and unremarkable. Prevoid vol:58 cc Postvoid vol:2 cc Renal color flow: Symmetric and within normal limits. IMPRESSION: No evidence of nephrolithiasis or hydronephrosis. DATA REPOSITORY:
[2024-05-19 11:58] LABS: Bilirubin Negative (Negative); Blood Negative (Negative); Clarity Clear (Clear); Glucose Negative (Negative); Ketones Negative (Negative); Leukocyte Esterase Negative (Negative); Nitrite Negative (Negative); Specific Gravity <= 1.005 (1.005-1.025); Urobilinogen 0.2 mg/dL (Up to 0.2)
[2024-05-19 12:22] LABS: COMMENT (LAB VIEW ONLY) < 13.00 mg/dL
== END 2024-05-19 03:21 ==
PROVIDERS: PCP Student in an Organized Health Care Education/Training Program; Visit Provider Nurse Practitioner Gerontology
DX: N18.30 Chronic kidney disease, stage 3 unspecified (principal); R79.89 Other specified abnormal findings of blood chemistry
CPT/HCPCS: 76770; 81003; 82043; 82570